=== PATIENT | male | born 1950 | race Caucasian/White ===

== ENCOUNTER → 2025-05-12 | Outpatient (CLI) | payer MEDICARE, OTHER ==
[2025-05-12 15:07] LABS: Basophils # (A) 0.07 X 10*3/uL (0.00-0.10); Basophils % (A) 1.3 %; Eosinophils # (A) 0.17 X 10*3/uL (0.04-0.35); Eosinophils % (A) 3.1 %; HCT 46.9 % (39.6-50.0); HGB 15.3 g/dL (13.0-17.0); Lymphocytes # (A) 1.22 X 10*3/uL (0.90-5.00); Lymphocytes % (A) 22.5 %; MCH 30.4 pg (27.0-32.0); MCHC 32.6 g/dL (32.0-37.0); MCV 93.1 FL (80.0-97.0); Mean Platelet Volume 10.3 FL (9.5-12.2); Monocytes # (A) 0.62 X 10*3/uL (0.20-1.00); Monocytes % (A) 11.4 %; NRBC Per 100 WBC 0 X 10*3/uL (0.00-0.01); Neutrophils # (A) 3.28 X 10*3/uL (1.80-7.70); Neutrophils % (A) 60.4 %; Platelet Count 249 X 10*3/uL (140-440); RBC 5.04 X 10*6/uL (4.40-5.60); RDW 12.8 % (11.5-14.5); WBC 5.43 X 10*3/uL (4.50-10.00)
== END | disposition home or self-care (01) ==
LOC: LABWHC1 11:25
PROVIDERS: ATTEND Surgery
DX: Z01.818 Encounter for other preprocedural examination (principal); K40.20 Bilateral inguinal hernia, without obstruction or gangrene, not specified as recurrent
CPT/HCPCS: 85025; 86850; 86900; 86901; 93005

== ENCOUNTER 2025-05-16 09:42 | Day surgery (SDC) | payer MEDICARE, OTHER ==
[2025-05-11 15:06] VITALS: BMI 24.7
[~2025-05-16 09:42] MED LIST: HYDROmorphone 0.5 MG/0.5 ML SYRINGE IVP PRN; LIDOCAINE 1% (10MG/ML) FOR IV START INTRADERMA PRN; droPERidol 2.5 MG/ML VIAL IVP ONE
[2025-05-16] MEDS: IV FLUID CONTINUATION 1,000 ML IV ONE ×2 (10:00→14:50)
[2025-05-16 10:04] VITALS: TEMP 97.5
[2025-05-16] MEDS: DEXAMETHASONE SOD PHOSPHATE 4 MG/ML 1 ML VIAL IV ONE (10:46)
[2025-05-16] MEDS: ONDANSETRON 4 MG/2 ML VIAL IVP ONE (10:46)
[2025-05-16] MEDS: HEPARIN SODIUM,PORCINE 5,000 UNIT/ML 1 ML VIAL SQ PRN (10:46)
[2025-05-16] MEDS: ACETAMINOPHEN TAB 500 MG TAB PO PRN (10:46)
[2025-05-16] MEDS: TAMSULOSIN 0.4 MG CAP.ER.24H PO STA ×2 (10:47→14:49)
[2025-05-16] MEDS: LACTATED RINGERS 1,000 ML IV SCH (10:47)
--- NOTE | 2025-05-16 10:57 | P.GSHP ---
History of Present Illness H&P Date: 05/16/25 Chief Complaint: Bilateral inguinal hernia 75-year-old male here for hernia repair. Seen in the office a few months ago. Enlarging bulge left groin. Increasing pain. Wears a truss for that. Also thought he had felt some swelling on the right-hand side as well. No previous hernia repair. Past Medical History Additional Past Medical History / Comment(s): hamida inguinal hernias,scar tissue in rt wrist History of Any Multi-Drug Resistant Organisms: None Reported Additional Past Surgical History / Comment(s): vascular bypass rt wrist, rt carpel tunnel Past Anesthesia/Blood Transfusion Reactions: No Reported Reaction Additional Past Anesthesia/Blood Transfusion Reaction / Comment(s): no hx blood transfusions Smoking Status: Former smoker - Past Family History Mother Family Medical History: Cancer Father Family Medical History: Cancer Additional Family Medical History / Comment(s): heart valve replacement, prostate cancer Medications and Allergies Home Medications Medication Instructions Recorded Confirmed Type Naproxen Sodium [Aleve] 220 mg PO BID PRN 05/11/25 05/11/25 History diphenhydrAMINE [Benadryl] 25 mg PO QID PRN 05/11/25 05/11/25 History Allergies Allergy/AdvReac Type Severity Reaction Status Date / Time amoxicillin Allergy Itching Verified 05/16/25 10:10 urokinase Allergy Anaphylaxis,coded Verified 05/16/25 10:10 during administration Surgical - Exam Vital Signs Temp Pulse Resp BP Pulse Ox 97.5 F L 64 14 118/85 98 05/16/25 10:00 05/16/25 10:00 05/16/25 10:00 05/16/25 10:00 05/16/25 10:00 Physical exam: General: Well-developed, well-nourished HEENT: Normocephalic, sclerae nonicteric Abdomen: Nontender, nondistended, bilateral inguinal hernia left greater than right Extremities: No edema Neuro: Alert and oriented Assessment and Plan (1) Bilateral inguinal hernia Narrative/Plan: 75-year-old male with bilateral inguinal hernia. Will proceed with laparoscopic da Sandra assisted repair of bilateral inguinal hernia repair with mesh, possi ble open. Risks of bleeding, infection, recurrence, chronic pain, bladder and bowel injury, numbness, conversion to an open procedure, scarring, and anesthesia related complications were discussed. The correlation between hernia recurrence, obesity and smoking were reviewed in detail. The patient understands and wishes to proceed. Current Visit: Yes Status: Acute Code(s): K40.20 - BI INGUINAL HERNIA, W/O OBST OR GANGRENE, NOT SPCF RECUR OMED Code(s): 28334549
[2025-05-16] MEDS ORDERED: hydrALAZINE HCL 20 MG/ML 1 ML VIAL ONE (11:13)
[2025-05-16] MEDS ORDERED: GLYCOPYRROLATE 0.2 MG/ML 2 ML VIAL ONE (11:13)
[2025-05-16] MEDS ORDERED: PROPOFOL 10 MG/ML 20 ML VIAL IV ONE (11:13)
[2025-05-16] MEDS ORDERED: fentaNYL (PF) 50 MCG/ML 2 ML AMP ONE (11:13)
[2025-05-16] MEDS ORDERED: ROCURONIUM 10 MG/ML (5 ML VIAL) IV ONE (11:13)
[2025-05-16] MEDS ORDERED: LIDOCAINE 1% INJ 10MG/ML (20 ML MDV) ONE (11:13)
[2025-05-16] MEDS ORDERED: NEOSTIGMINE 1 MG/ML 10 ML VIAL ONE (11:13)
[2025-05-16] MEDS ORDERED: MIDAZOLAM 2 MG/2 ML VIAL ONE (11:13)
[2025-05-16] MEDS ORDERED: SUCCINYLCHOLINE CHLORIDE 200 MG/10 ML VIAL IV ONE (11:13)
[2025-05-16] MEDS: BUPIVACAINE (PF) 0.25% 30 ML VIAL SQ ONE (11:41)
--- NOTE | 2025-05-16 13:23 | P.OP ---
Date of Procedure: 05/16/25 Procedure(s) Performed: PREOPERATIVE DIAGNOSIS: Bilateral inguinal hernia POSTOPERATIVE DIAGNOSIS: Same PROCEDURE: Laparoscopic da Sandra assisted repair of bilateral inguinal hernia with mesh SURGEON: Dr. Mcmahan ANESTHESIA: General EBL: 10 cc OPERATIVE PROCEDURE DETAILS: Patient was placed in the operating table in the supine position. The patient was placed under general anesthesia. The abdomen was prepped and draped in usual sterile fashion. A small curvilinear supraumbilical incision was made. The fascia was retracted anteriorly with Hayfield forceps. The Veress needle was inserted. The saline drop test was normal. Insufflation took place to 15 mmHg. An 8 mm trocar was placed into the peritoneal cavity. 2 additional 8 mm trochars were placed in the right upper quadrant and left upper quadrant under visualization. The robotic arms were then brought in and docked into place. The fenestrated bipolar was used in the left arm and the laparoscopic annemarie was utilized in the right arm. A 30° 8 mm scope was used in the up position. The peritoneal cavity was inspected. The patient had a moderate sized left direct inguinal hernia and a smaller sized right direct inguinal hernia. A incision was created on the peritoneum across the lower abdomen superior to the bladder. The preperitoneal dissection took place bilaterally at that time. The direct hernia on the right-hand side was reduced using blunt dissection. Adeel's ligament and the pubic symphysis were well-visualized. Dissection on the left-hand side of the direct hernia sac then took place without difficulty as well. Once we had full dissection in both sacs fully reduced 2 separate 15 x 10 mm Progrip mesh were placed within the abdomen crossing one another in the midline. These were then sutured to the Adeel's ligament across the pubic symphysis to the opposite side using a running 30 absorbable V lock suture. The same stitch was then brought to the midline and the mesh was sutured to the abdominal wall in the midline superiorly. This covered all hernia spaces nicely. The peritoneal defect was then closed bilaterally using a absorbable 2-0 VLok suture. The hernia sacs were incorporated into the peritoneal closure to help prevent future recurrence. The pneumoperitoneum was then evacuated. The skin of all 3 sites was closed using a 4-0 Monocryl stitch. Skin glue was then applied. TYPE OF MESH USED: Progrip 15 x 10 LOCATION OF MESH: Preperitoneal/sub-lay FIXATION: Absorbable 30V lock PREOPERATIVE DISCUSSION ON SMOKING CESSASTION: Yes PREOPERATIVE DISCUSSION ON MORBID OBESITY: Yes PREOPERATIVE DISCUSSION ON APPROPRIATE USE OF NARCOTIC USE: Yes PREOPERATIVE EDUCATION: Multi Modal, Smoking Cessation and Weight Loss with BMI over 35. DISPOSITION: Stable to recovery room
[2025-05-16] MEDS ORDERED: TETRACAINE 0.5% OPHTH (PF) DROPS 4 ML BTL LEFT EYE STA (15:10)
[2025-05-16] MEDS ORDERED: ARTIFICIAL TEARS-HYPROMELLOSE DROPS 15 ML BTL LEFT EYE PRN (15:35)
[2025-05-16] MEDS ORDERED: ARTIFICIAL TEARS-HYPROMELLOSE DROPS 15 ML BTL BOTH EYES PRN (15:35)
[2025-05-16] MEDS: PROPARACAINE 0.5% OPHTH DROPS 15 ML BTL BOTH EYES STA (15:44)
[2025-05-16] MEDS: OFLOXACIN 0.3% OPHTH DROPS 5 ML BOTTLE LEFT EYE SCH (16:28)
[2025-05-16] MEDS ORDERED: ACETAMINOPHEN TAB 325 MG TAB PO SCH (17:00)
[2025-05-16 17:13] VITALS: RESP 16
[2025-05-16 17:37] VITALS: BP 148/72; PULSE 86
[2025-05-16] MEDS ORDERED: IBUPROFEN 600 MG TAB PO SCH (20:00)
--- NOTE | 2025-05-16 21:03 | P.CON ---
Consult Note - . Consult date: 05/16/25 Assessment/Plan:: 75 y/o male who underwent herniorrhaphy awoke with left eye discomfort. Sign Wirer was called to assess eye discomfort. There is no previous eye history of concern or prior surgery. Patient last had an eye exam about a year ago. He wears glasses multimedia artist. Va: w/ correction 20/20 OU External: unremarkable, however patient is shunning light especially with the left eye. EOM: normal Pupils: no APD Cornea: clear OD, inferior linear superficial abrasion following lower eyelid line, stains with fluorescein AC: D&Q Iris: unremarkable Lens: early to moderate cataract, OU A: 1) superficial abrasion left eye, expect resolution within about 48-72 hours P: Artificial tears multiple times daily for the next 48 hours, then extend usage for the left eye 4 times daily for 4-6 weeks. Add topical antibiotic, ofloxacin for left eye, for 5 days, then discontinue. Call office if not resolving. Thank you for this consultation.
== END 2025-05-16 18:05 | disposition home or self-care (01) ==
LOC: OR 09:42
PROVIDERS: ATTEND Surgery
DX: K40.20 Bilateral inguinal hernia, without obstruction or gangrene, not specified as recurrent (principal); S05.02XA Injury of conjunctiva and corneal abrasion without foreign body, left eye, initial encounter; H26.9 Unspecified cataract; Z87.891 Personal history of nicotine dependence; Z87.892 Personal history of anaphylaxis; Z88.8 Allergy status to other drugs, medicaments and biological substances; Z88.0 Allergy status to penicillin
CPT/HCPCS: 49650; S2900